=== PATIENT | male | born 1995 | race Two or more races ===

== ENCOUNTER 2020-05-05 12:49 | Day surgery (SDC) | payer OTHER ==
[~2020-05-05 12:49] MED LIST: CEFAZOLIN 2 GM/D5W RTU 2 GM/50 ML RTUPB IV PRN; DEXAMETHASONE SOD PHOSPHATE INJ 4 MG/1 ML VIAL ONE; ETOMIDATE INJ/PF 20 MG/10 ML SDV IV ONE; KETOROLAC TROMETHAMINE 60 MG/2 ML SDV ONE; LIDOCAINE 2% INJ-PF (20 MG/ML) 2 ML AMPUL ONE; ONDANSETRON HCL INJ/PF 4 MG/2 ML SDV ONE
[2020-05-05] MEDS ORDERED: CEFAZOLIN 2 GM/D5W RTU 2 GM/50 ML RTUPB IV ONE (14:10)
--- NOTE | 2020-05-05 14:12 | Discharge Summary ---
Discharge Summary (SDC) - Discharge Final Diagnosis: Left small finger proximal phalanx fracture Date of Surgery: 05/05/20 Discharge Date: 05/05/20 Condition: Good Treatment or Instructions: Schedule Follow Up w/ Dr. Giuseppe Diallo @ [facility] for Surgery to be seen in 10-14 days or as scheduled [place]: [place]: [place]: Ice and elevate Keep splint clean/dry/intact, do not remove. If your fingers become numb please unwrap the Lucio wrap but leave the splint in place, if the sensation does not return within 30 minutes please return to the emergency department. May begin finger range of motion attempting to make full fist. Please use ibuprofen (Motrin or Advil) 600-800 mg every 8 hours as needed for pain or fever DO NOT TAKE w/ TORADOL may use once TORADOL complete. You may also use acetaminophen (Tylenol) 1000 mg every 4-6 hours as needed for pain or fever. Please be aware that many medications contain acetaminophen, do not exceed a total of 1000 mg of acetaminophen every 6 hours. If ibuprofen and acetaminophen are not sufficient for your pain you may take the Percocet/Tennga. Please be aware that the Percocet/Tennga does contain Tylenol. Stool softener of choice when on pain medication. USE OF OPDK-BIX-TTDWAYT IBUPROFEN: Ibuprofen (Advil, Nuprin, Medipren, Motrin IB) is a medication for fever and pain control. In addition, it has anti- inflammatory effects which may be beneficial, especially in the treatment of injuries. It's best to take ibuprofen with food. Persons with ulcer disease or allergy to aspirin should notify their physician of this before taking ibuprofen. Ibuprofen can be given every four to six hours, for a total of four doses daily. Age Pain or fever dose Antiinflammatory dose 6-8 yr 200 mg (1 tab) 200 mg (1 tab) 9-11 yr 200 mg (1 tab) 200-400 mg (1-2 tab) 11-14 yr 200-400 mg (1-2 tab) 400 mg (2 tab) 15-adult 400 mg (2 tab) 600 mg (3 tab) ORAL NARCOTIC MEDICATION: You have been given a prescription for pain control. This medication is a narcotic. It's best taken with food, as nausea can result if taken on an empty stomach. Don't operate machinery or drive within six hours of taking this medication. Do not combine this medicine with alcohol, or with any medication which can cause sedation (such as cold tablets or sleeping pills) unless you get permission from the physician. Narcotics tend to cause constipation. If possible, drink plenty of fluids and eat a diet high in fiber and fruits. Please be aware that prescription narcotics also have the potential for abuse. People become addicted to these medications because of the general sense of wellbeing that they induce. This feeling along with a significant reduction in tension, anxiety, and aggression provides a stimulating seductive quality to these drugs. Once your pain is under control, we encourage you to discard your unused narcotics. Prescriptions: Oxycodone HCl/Acetaminophen [Percocet 5-325 mg Tablet] 1 tab PO ASDIR PRN #25 tab PRN Reason: Discharge Diet: As Tolerated Respiratory Treatments at Home: Deep Breathing/Coughing, Incentive Spirometer Discharge Activity: No Lifting Over 10 Pounds, No Lifting/Push/Pulling Report the Following to Your Physician Immediately: Fever over 101 Degrees, Unu sual Bleeding, Redness, Swelling, Warmth, Increased Soreness
[2020-05-05] MEDS ORDERED: BUPIVACAINE HCL 0.5 % INJ/PF 30 ML SDV ONE (15:17)
[2020-05-05] MEDS ORDERED: FENTANYL CITRATE INJ/PF 100 MCG/2 ML AMPUL ONE ×2 (15:18→16:55)
[2020-05-05] MEDS ORDERED: MIDAZOLAM 2 MG/2 ML INJ ONE (15:18)
[2020-05-05] MEDS ORDERED: EPHEDRINE SULFATE INJ 50 MG/1 ML AMPULE ONE (15:19)
[2020-05-05] MEDS ORDERED: PROPOFOL INJ 200 MG/20 ML VIAL IV ONE (15:19)
[2020-05-05] MEDS ORDERED: PROMETHAZINE HCL INJ 25 MG/1 ML VIAL IV PRN ×2 (16:10)
[2020-05-05] MEDS ORDERED: MEPERIDINE HCL/PF INJ 25 MG/1 ML DISP.SYRIN IV PRN (16:10)
[2020-05-05] MEDS ORDERED: DIPHENHYDRAMINE HCL 50 MG/ML VIAL IV PRN (16:10)
[2020-05-05] MEDS ORDERED: FENTANYL CITRATE INJ/PF 100 MCG/2 ML AMPUL IV PRN ×3 (16:10)
[2020-05-05] MEDS ORDERED: OXYCODONE-ACETAMINOPHEN 5-325 MG TABLET PO PRN (16:46)
--- NOTE | 2020-05-05 16:52 | Operative Report ---
Operative Report DATE OF SURGERY: 05/05/20 PREOPERATIVE DIAGNOSIS: Left Small finger intra-articular fracture proximal pha lanx at the PIP joint POSTOPERATIVE DIAGNOSIS: Same OPERATION: ORIF Left Small Finger intra-articular proximal Phalanx head fracture SURGEON: OCTAVIA SILVA ANESTHESIA: GA COMPLICATIONS: None ESTIMATED BLOOD LOSS: Minimal PROCEDURE: Indication for above procedure: 24-year-old male who sustained a injury to his left finger while on vacation in [place] unfortunately given the location and lack to available medical treat ment patient did not have x-rays [facility]. Once returning to the [facility], x-rays demonstrated displaced angulated proximal phalanx fracture subsequently was sent and we discussed treatment options including operative versus nonoperative intervention of discussing risk and benefits of both joint decision was made to proceed with operative treatment. Procedure In Detail: Patient was seen and evaluated in the preoperative holding area. The LEFT upper extremity was initialized and marked. Patient received 2g of Ancef IV for bacterial prophylaxis. Patient was taken back to the operative room where transferred to the operative table and placed under general anesthesia. Once they were adequately anesthetized a nonsterile tourniquet was placed on the upper extremity. A surgical team debriefing was performed ensuring all instrumentation was available, the surgical procedure was discussed with possible concerns reviewed. The upper extremity was prepped with chlorhexidine and alcohol and draped in a sterile fashion. A timeout was done identifying correct patient, procedure and extremity everyone in attendance agree with this and verbalized no concerns. The extremity was exsanguinated the tourniquet was inflated to 250 mmHg.3 Under C arm guidance osteoclasis was performed with a 0.045 K wire however there continue to be malrotation of the ulnar condyle of the proximal phalanx and thus decision was made to proceed with mini open. Longitudinal skin incision was made along the mid lateral line blunt dissection was performed. Neurovascular bundle was protected. Under direct visualization the ulnar condyle of the proximal phalanx head was identified in order to protect vascularity of the fragment the fragment was not completely exposed but was then elevated with a [place] to obtain provisional fixation a 0.035 K wire was placed underneath the fragment acting as a rafting type K wire. Once the deformity was corrected I did attempt to place a additional K wire from the fragment into the intact shaft however given the small bone stock of the fragment I felt blocking pin fixation would likely best approach to avoid destruction of the small fragment and obtain secondary fixation. Frag was most stable with flexion of the piece which continue to want to fall into extension thus a 0.045 K wire was placed dorsal to the fragment to act as a blocking pin to avoid dorsal displacement. The previous 0.035 care acted as a rafting pin to avoid collapse a second K wire was then placed obliquely from radial to ulnar to provide further secondary elevation of the fragment. At completion there was amish of the articular alignment despite prior comminution. The coronal alignment improved. There is no evidence of malrotation. Under C arm fluoroscopy PIP joint range of motion was performed which demonstrated maintained alignment without instability of the fracture fragment. K wires were then cut below the skin. Wound was copiously irrigated with normal saline. Skin was closed interrupted 4-0 nylon suture. 10 cc of 0.5% Marcaine without epinephrine was injected for postop pain control. Patient was placed in a plaster dorsal blocking splint over the PIP joint leaving the MP and IP joints free. Sponge counts, instrument counts, needle counts were correct. Patient was then awoken from anesthesia. Transferred from the operating room table to the operating room stretcher. There was no intraoperative complications patient tolerated procedure well stable to PACU. Postop plan: Patient follow in the office in 2 weeks we will obtain x-rays. We will set him up to begin occupational therapy 10 days postoperatively fit for a dorsal blocking splint at the PIP joint.
[2020-05-05 18:58] VITALS: BP 128/74
--- NOTE | 2020-05-06 08:52 | RADIOLOGY REPORT (SQ) ---
EXAM DESCRIPTION: NO CHG FLUORO; FINGER LEFT IMAGES COMPLETED DATE/TIME: 05/05/2020 6:57 pm REASON FOR STUDY: 5TH DIGIT PERC PINNING S62.512A DISP FX OF PROXIMAL PHALANX OF LEFT THUMB, INIT F OR COMPARISON: None. FLUOROSCOPY TIME: 1 minutes 41 seconds 4 Images saved to PACS TECHNIQUE: Intra-operative images acquired during surgical procedure to evaluate progress. NUMBER OF IMAGES: 4 LIMITATIONS: None. FINDINGS: Limited intraoperative fluoroscopic images demonstrate evidence of Bandar wire fixation of the proximal left phalanx, digit indeterminate. Please see operative report for detailed descrip tion. IMPRESSION: IMAGE(S) OBTAINED DURING PROCEDURE. COMMENT: Quality ID [id number]: Final reports for procedures using fluoroscopy that document radiation exp osure indices, or exposure time and number of fluorographic images (if radiation exposure indices are not available) Please consult full operative report of the attending physician for description of the procedure. TECHNICAL DOCUMENTATION: JOB ID: [id number] 2010 [employer]- All Rights Reserved Reading location - IP/workstation name: [email or web address]
--- NOTE | 2020-05-06 08:52 | RADIOLOGY REPORT (SQ) ---
EXAM DESCRIPTION: NO CHG FLUORO; FINGER LEFT IMAGES COMPLETED DATE/TIME: 05/05/2020 6:57 pm REASON FOR STUDY: 5TH DIGIT PERC PINNING S62.512A DISP FX OF PROXIMAL PHALANX OF LEFT THUMB, INIT F OR COMPARISON: None. FLUOROSCOPY TIME: 1 minutes 41 seconds 4 Images saved to PACS TECHNIQUE: Intra-operative images acquired during surgical procedure to evaluate progress. NUMBER OF IMAGES: 4 LIMITATIONS: None. FINDINGS: Limited intraoperative fluoroscopic images demonstrate evidence of Bandar wire fixation of the proximal left phalanx, digit indeterminate. Please see operative report for detailed descrip tion. IMPRESSION: IMAGE(S) OBTAINED DURING PROCEDURE. COMMENT: Quality ID [id number]: Final reports for procedures using fluoroscopy that document radiation exp osure indices, or exposure time and number of fluorographic images (if radiation exposure indices are not available) Please consult full operative report of the attending physician for description of the procedure. TECHNICAL DOCUMENTATION: JOB ID: [id number] 2010 [employer]- All Rights Reserved Reading location - IP/workstation name: [email or web address]
== END 2020-05-05 18:55 | disposition home or self-care (01) ==
LOC: OROUT 12:49
PROVIDERS: ATTEND Orthopaedic Surgery
DX: S62.617A Displaced fracture of proximal phalanx of left little finger, initial encounter for closed fracture (principal); X58.XXXA Exposure to other specified factors, initial encounter; F17.290 Nicotine dependence, other tobacco product, uncomplicated
CPT/HCPCS: 26735; 73140; J2250; J3490; J3010; J2704; J0690; 01820; C1713; J1100; J1885; J2405